=== PATIENT | female | born 1995 | race Hispanic/Latino ===

== ENCOUNTER 2019-04-15 19:02 | Emergency (ER) | payer OTHER, SELFPAY ==
[2019-04-15 19:07] VITALS: BP 132/82; PULSE 89; RESP 20; TEMP 36.2; O2SAT 100
[2019-04-15 19:24] LABS: Appearance Urine UA SL CLOUDY; Bilirubin Urine UA NEGATIVE (NEGATIVE); Color Urine UA YELLOW; Glucose Urine UA NEGATIVE (Negative); Ketones Urine UA NEGATIVE (NEGATIVE); Leukocyte Esterase Urine UA 2+ (NEGATIVE); Nitrite Urine UA NEGATIVE (Negative); Occult Blood Urine UA 1+ (Negative); Protein Urine UA TRACE (Negative); Specific Gravity Urine UA 1.025 (1.000-1.035); Urobilinogen Urine UA 0.2 E.U./dL (0.2)
[2019-04-15 19:30] LABS: Bacteria Urine Few (2-10); Culture Indicated Urine Specimen Cultured; RBC Urine 1-5/HPF (0-5/HPF); Squamous Epithelial Cell Urine 1-5 /HPF (0-5/HPF); WBC Urine 30-100/HPF (0-5/HPF)
--- NOTE | 2019-04-15 20:11 | ED.FEMALEGU ---
HPI - Female Genitourinary <PATRICIA Winston - Last Filed: 04/15/19 20:23> General Chief complaint: Urogenital-Female Stated complaint: UTI Time Seen by Provider: 04/15/19 19:29 Source: patient Mode of arrival: Ambulatory Limitations: no limitations History of Present Illness HPI Narrative: The patient is a 23-year-old female nonsmoker with history of urinary tract infections who presents with a chief complaint of ?I have another UTI.She states that she has a history of UTIs, most recently had one 2 weeks ago, finished a course of Macrobid. Then yesterday she started having dysuria urgency and frequency. She states she had slight blood in her urine. She denies any nausea vomiting diarrhea or flank pain. She denies any vaginal discharge. Related Data Previous Rx's Medication Instructions Recorded ciprofloxacin HCl 250 mg PO BID 3 Days #6 tab 04/15/19 Allergies Allergy/AdvReac Type Severity Reaction Status Date / Time nickel Allergy Verified 04/15/19 19:26 Penicillins Allergy Verified 04/15/19 19:26 Sulfa (Sulfonamide Allergy Verified 04/15/19 19:26 Antibiotics) Review of Systems <PATRICIA Winston - Last Filed: 04/15/19 20:23> Review of Systems Narrative: GENERAL: Denies chills, fatigue, malaise, fever, sweats. HEENT: Denies sinus pain, ear pain, sore throat, difficulty swallowing, dizziness. RESPIRATORY: Denies dyspnea, cough, wheezing, hemoptysis, sputum. CARDIOVASCULAR: Denies chest pain, palpitations, orthopnea, edema, GASTROINTESTINAL: Denies nausea, vomiting, abdominal pain, diarrhea, constipation, melena. : See HPI MUSCULOSKELETAL: denies weakness, joint pain, or bony pain SKIN: Denies rash, skin lesions, or other NEUROLOGIC: Denies weakness, headache, numbness, change in speech, confusion, seizures, incoordination. PSYCHIATRIC: No concerning psychosocial issues. 12 point review of systems is negative except for those stated above Exam <PATRICIA Winston - Last Filed: 04/15/19 20:23> Narrative Exam Narrative: GENERAL: This is a well-nourished, well-developed patient, no acute distress HEAD: Atraumatic. Normocephalic. No temporal or scalp tenderness. EYES: Pupils equal round and reactive. Extraocular motions intact. No scleral icterus. No injection or drainage. ENT: Nose without bleeding, purulent drainage or septal hematoma. Throat without erythema, tonsillar hypertrophy or exudate. Uvula midline. Airway patent. NECK: Trachea midline. No JVD or lymphadenopathy. Supple, nontender, no meningeal signs. CARDIOVASCULAR: Regular rate and rhythm RESPIRATORY: Clear to auscultation. Breath sounds equal bilaterally. No wheezes, rales, or rhonchi. No cough. No increased respiratory effort. No accessory muscle use. GASTROINTESTINAL: Abdomen soft, non-tender, nondistended. No hepato-splenomegaly, or palpable masses. No guarding. Active bowel sounds all 4 quadrants. EXTREMITIES: No clubbing, cyanosis, or edema. No joint tenderness, effusion, or edema noted. BACK: Nontender without deformity or crepitance. No flank tenderness. No CVA tenderness bilaterally. NEURO: AOx3. SKIN: No rash or erythema on visible skin Initial Vital Signs Initial Vital Signs: Vital Signs Temperature 97.2 F L 04/15/19 19:07 Pulse Rate 89 04/15/19 19:07 Respiratory Rate 20 04/15/19 19:07 Blood Pressure 132/82 04/15/19 19:07 Pulse Oximetry 100 04/15/19 19:07 <Tamera Jimenez MD - Last Filed: 04/16/19 01:19> Initial Vital Signs Initial Vital Signs: Vital Signs Temperature 97.2 F L 04/15/19 19:07 Pulse Rate 89 04/15/19 19:07 Respiratory Rate 20 04/15/19 19:07 Blood Pressure 132/82 04/15/19 19:07 Pulse Oximetry 100 04/15/19 19:07 Course <PATRICIA Winston - Last Filed: 04/15/19 20:23> Orders Ordered: ED Orders 04/15/19 19:21 Urinalysis and Microscopic Stat Urine Culture Stat Discontinued Medications Ciprofloxacin (Cipro) 250 mg PO NOW ONE Stop: 04/15/19 19:45 Last Admin: 04/15/19 20:13 Dose: 250 mg Documented by: JESUS Vital Signs Vital signs: Vital Signs - 8 hr 04/15/19 19:07 Temperature 97.2 F L Pulse Rate 89 Respiratory Rate 20 Blood Pressure 132/82 Pulse Oximetry 100 <Tamera Jimenez MD - Last Filed: 04/16/19 01:19> Orders Ordered: ED Orders 04/15/19 19:21 Urinalysis and Microscopic Stat Urine Culture Stat Discontinued Medications Ciprofloxacin (Cipro) 250 mg PO NOW ONE Stop: 04/15/19 19:45 Last Admin: 04/15/19 20:13 Dose: 250 mg Documented by: ALVINO Vital Signs Vital signs: Vital Signs - 8 hr 04/15/19 19:07 Temperature 97.2 F L Pulse Rate 89 Respiratory Rate 20 Blood Pressure 132/82 Pulse Oximetry 100 MDM - Female Genitourinary <PATRICIA Winston - Last Filed: 04/15/19 20:23> Lab Data Labs: Lab Results 04/15/19 Range/Units 19:21 Urine Color Yellow Urine Appearance Sl cloudy Urine pH 6.0 (4.5-8.0) Ur Specific [place] 1.025 (1.000-1.035) Urine Protein Trace H (Negative) Urine Glucose (UA) Negative (Negative) g/dL Urine Ketones Negative (NEGATIVE) Urine Occult Blood 1+ H (Negative) Urine Nitrate Negative (Negative) Urine Bilirubin Negative (NEGATIVE) Urine Urobilinogen 0.2 (0.2) E.U./dL Ur Leukocyte Esterase 2+ H (NEGATIVE) Urine RBC 1-5/hpf (0-5/HPF) Urine WBC 30-100/hpf H (0-5/HPF) Ur Squamous Epith Cells 1-5 /hpf (0-5/HPF) Urine Bacteria Few (2-10) H (None) Ur Culture Indicated? Specimen cultured Point of Care Testing Test Results Negative [facility] Narrative Medical decision making narrative: The patient presents with a chief complaint of ?I have another UTI.She has no signs of systemic illness, is afebrile, eating and drinking well. Urine is concerning with the patient's symptoms of dysuria urgency and frequency as well as wbc's, bacteria, occult blood. The patient finished a course of Macrobid last week, has had multiple UTIs and is allergic to penicillin and sulfa. Given her recent antibiotics and likelihood of antibiotic resistance, we elected to use Cipro 250 b.i.d.. Discussed at length follow up with primary care provider. She has very frequent UTIs it may benefit for his urologist. Discussed at length follow up with primary care provider. Discussed monitor for tendon pain. Discussed monitoring for fever, flank pain etcetera. Patient has no questions or concerns upon discharge and states understanding of return precautions as well as follow-up care. <Tamera Jimenez MD - Last Filed: 04/16/19 01:19> Lab Data Labs: Lab Results 04/15/19 Range/Units 19:21 Urine Color Yellow Urine Appearance Sl cloudy Urine pH 6.0 (4.5-8.0) Ur Specific [place] 1.025 (1.000-1.035) Urine Protein Trace H (Negative) Urine Glucose (UA) Negative (Negative) g/dL Urine Ketones Negative (NEGATIVE) Urine Occult Blood 1+ H (Negative) Urine Nitrate Negative (Negative) Urine Bilirubin Negative (NEGATIVE) Urine Urobilinogen 0.2 (0.2) E.U./dL Ur Leukocyte Esterase 2+ H (NEGATIVE) Urine RBC 1-5/hpf (0-5/HPF) Urine WBC 30-100/hpf H (0-5/HPF) Ur Squamous Epith Cells 1-5 /hpf (0-5/HPF) Urine Bacteria Few (2-10) H (None) Ur Culture Indicated? Specimen cultured Point of Care Testing Test Results Negative Discharge Plan Departure Patient Disposition: Home Clinical Impression: Urinary tract infection Qualifiers: Urinary tract infection type: site unspecified Hematuria presence: with hematuria Qualified Code(s): N39.0 - Urinary tract infection, site not specified Discharge Date/Time: 04/15/19 20:33 Instructions: DI for Urinary Tract Infection (UTI) Activity Restrictions/Additional Instructions: As discussed, your urine shows signs of infection. Urine culture is pending. If we have to change your antibiotics we will call you with the culture results in 2-3 days. Please follow-up with primary care provider. You may benefit from seeing a urologist if you continue to have frequent urinary tract infections. Please push fluids. You can use [id number] azo for pain. Please come back to the emergency department for any acute concerns such as fever, flank pain, inability keep down fluids etcetera. Prescriptions: New ciprofloxacin HCl 250 mg tablet 250 mg PO BID 3 Days Qty: 6 RF: 0 Referrals: [facility] Luciano [Provider Group]
[2019-04-15] MEDS: CIPROFLOXACIN 250 MG TABLET PO (20:13)
== END 2019-04-15 20:33 | disposition home or self-care (01) ==
PROVIDERS: Emergency Medicine; Emergency Provider Nurse Practitioner Family
DX: N39.0 Urinary tract infection, site not specified (principal)
CPT/HCPCS: 81001; 81025; 87077; 87086; 87147; 99283